=== PATIENT | female | born 1970 | race Caucasian/White ===

== ENCOUNTER 2022-01-23 09:41 | Outpatient (CLI) | payer OTHER | END 2022-01-23 09:42 | disposition home or self-care (01) | LOC: CSHMAMMO 09:41 | PROVIDERS: ATTEND Family Medicine | DX: Z12.31 Encounter for screening mammogram for malignant neoplasm of breast (principal); Z80.3 Family history of malignant neoplasm of breast | CPT/HCPCS: 77063; 77067 ==

== ENCOUNTER 2023-03-01 14:19 | Outpatient (CLI) | payer OTHER | END 2023-03-01 14:20 | disposition home or self-care (01) | LOC: CSHMAMMO 14:19 | DX: Z12.31 Encounter for screening mammogram for malignant neoplasm of breast (principal); Z80.3 Family history of malignant neoplasm of breast | CPT/HCPCS: 77063; 77067 ==

== ENCOUNTER 2025-04-05 08:52 | Outpatient (CLI) | payer OTHER | END 2025-04-05 08:53 | disposition home or self-care (01) | LOC: CSHMAMMO 08:52 | PROVIDERS: ATTEND Internal Medicine | DX: Z12.31 Encounter for screening mammogram for malignant neoplasm of breast (principal); Z80.3 Family history of malignant neoplasm of breast | CPT/HCPCS: 77063; 77067 ==